=== PATIENT | female | born 1995 | race Hispanic/Latino ===

== ENCOUNTER 2017-06-14 14:34 | Emergency (ER) | payer SELFPAY ==
[~2017-06-14] VITALS: Ht 144.8 cm; Wt 68.6 kg
[2017-06-14 15:25] LABS: HEMATOCRIT 38.7 % (36.0-46.0); HEMOGLOBIN 13.3 G/DL (11.9-15.5); MCH 28.5 PG (29.0-34.0); MCHC 34.4 G/DL (30.0-36.0); MCV 82.9 FL (83-99); PLATELET COUNT 363 K/uL (156-360); RBC DIS.WIDTH-CV 14.8 % (11.8-14.6); RBC DIS.WIDTH-SD 44.9 % (39-53); RED BLOOD COUNT 4.67 M/uL (3.80-5.20); WHITE BLOOD COUNT 8.9 K/uL (4.1-10.2)
[2017-06-14 15:33] LABS: ALBUMIN 4.3 g/dL (3.2-4.8)
[2017-06-14 15:34] LABS: CHLORIDE 107 mEq/L (99-109); POTASSIUM 3.9 mEq/L (3.7-5.4); SODIUM 141 mEq/L (136-147)
[2017-06-14 15:36] LABS: GLUCOSE 112 mg/dL (70-99); TOTAL PROTEIN 7.4 g/dL (6.4-8.3)
[2017-06-14 15:38] LABS: TOTAL BILIRUBIN 0.3 mg/dL (0.0-1.0)
[2017-06-14 15:39] LABS: ALKALINE PHOSPHATASE 87 IU/L (3-129)
[2017-06-14 15:40] LABS: CREATININE 0.8 mg/dL (0.6-1.3)
[2017-06-14 15:41] LABS: AST (GOT) 30 IU/L (2-34); UREA NITROGEN (BUN) 10 mg/dL (9-23)
[2017-06-14 15:42] LABS: ALT (GPT) 42 IU/L (3-49)
[2017-06-14 15:49] LABS: GFR ESTIMATE (CALCULATED) > 59 mL/min/; QUANTITATIVE HCG < 4.0 MIU/ML
[2017-06-14 16:06] LABS: APPEARANCE CLOUDY ((CLEAR)); BILIRUBIN NEGATIVE; BLOOD NEGATIVE; COLOR YELLOW ((YELLOW)); GLUCOSE (STRIP) NEGATIVE; KETONES NEGATIVE; LEUKOCYTES NEGATIVE; NITRITE NEGATIVE; PROTEIN (STRIP) NEGATIVE; SPECIFIC GRAVITY 1.025 (1.000-1.030)
[2017-06-14 16:16] LABS: AMORPHOUS PHOSPHATE CRYSTALS 4+; BACTERIA 1+ /HPF; EPITHELIAL CELLS 1+ /HPF; MUCUS NONE SEEN /LPF; RED BLOOD CELLS 0-5 /HPF (0-5); WHITE BLOOD CELLS 0-5 /HPF (0-5)
[2017-06-14] MEDS ORDERED: MOTRIN600 MG PO (17:04)
[2017-06-14 17:26] VITALS: BP 107/70
== END 2017-06-14 17:28 | disposition home or self-care (01) ==
LOC: EME 14:34
PROVIDERS: Nurse Practitioner Family
DX: N70.11 Chronic salpingitis (principal); R10.2 Pelvic and perineal pain; F17.200 Nicotine dependence, unspecified, uncomplicated; Z90.721 Acquired absence of ovaries, unilateral
CPT/HCPCS: 76856; 80053; 81003; 84702; 85027; 99281; 99284